=== PATIENT | male | born 1960 | race Caucasian/White ===

== ENCOUNTER → 2024-01-28 | Outpatient (CLI) | payer BC ==
--- NOTE | 2024-01-28 18:00 | US ---
EXAMINATION TYPE: US extremity nonvasc mass LT DATE OF EXAM: 01/28/2024 COMPARISON: NONE CLINICAL INDICATION: Male, 63 years old with history of R22.42 Limited left-soft tissue inner left th igh; palpable within left thigh, no pain TECHNIQUE: Soft tissue palpable FINDINGS: 4.3 x 2.7 x 2.1cm isoechoic, compressible, soft lesion that is probable lipoma IMPRESSION: Findings felt to reflect lipoma. [facility], , 01/28/2024 5:58 PM
== END | disposition home or self-care (01) ==
LOC: RADUSWWP 14:31
PROVIDERS: ATTEND Family Medicine
DX: R22.42 Localized swelling, mass and lump, left lower limb (principal)